=== PATIENT | male | born 1995 | race Two or more races ===

== ENCOUNTER 2019-01-24 11:18 | Emergency (ER) | payer OTHER ==
[~2019-01-24] VITALS: Ht 170.2 cm; Wt 59.0 kg
[2019-01-24 11:50] VITALS: BP 150/98
--- NOTE | 2019-01-24 13:17 | PHYS DOC ---
Past Medical History Past Medical History: No Pertinent History Past Surgical History: No Surgical History Alcohol Use: Occasionally Drug Use: None Adult General Chief Complaint Chief Complaint: GROIN PAIN HPI HPI Patient is a 23 year old male presents with groin pain that's been ongoing since . The patient states the pain is intermittent and hurts most when he stands up. The patient states is 2 out of 10 in severity and sharp. Review of Systems Review of Systems Constitutional: Denies fever or chills [] Eyes: Denies change in visual acuity, redness, or eye pain [] HENT: Denies nasal congestion or sore throat [] Respiratory: Denies cough or shortness of breath [] Cardiovascular: No additional information not addressed in HPI [] GI: Denies abdominal pain, nausea, vomiting, bloody stools or diarrhea [] : Reports groin pain. Musculoskeletal: Denies back pain or joint pain [] Integument: Denies rash or skin lesions [] Neurologic: Denies headache, focal weakness or sensory changes [] Endocrine: Denies polyuria or polydipsia [] Complete systems were reviewed and found to be within normal limits, except as documented in this note. Allergies Allergies Allergies Coded Allergies Type Severity Reaction Last Updated Verified No Known Drug Allergies 01/24/19 No Physical Exam Physical Exam Constitutional: Well developed, well nourished, no acute distress, non-toxic appearance. [] HENT: Normocephalic, atraumatic, bilateral external ears normal, oropharynx moist, no oral exudates, nose normal. [] Eyes: PERRLA, EOMI, conjunctiva normal, no discharge. [] Neck: Normal range of motion, no tenderness, supple, no stridor. [] Cardiovascular:Heart rate regular rhythm, no murmur [] Lungs & Thorax: Bilateral breath sounds clear to auscultation [] Abdomen: Bowel sounds normal, soft, no tenderness, no masses, no pulsatile masses. [] Skin: Warm, dry, no erythema, no rash. [] Back: No tenderness, no CVA tenderness. [] Extremities: No tenderness, no cyanosis, no clubbing, ROM intact, no edema. [] Neurologic: Alert and oriented X 3, normal motor function, normal sensory function, no focal deficits noted. [] Psychologic: Affect normal, judgement normal, mood normal. [] Pelvic: Groin tenderness on palpation. Current Patient Data Vital Signs Vital Signs Date Time Temp Pulse Resp B/P (MAP) Pulse Ox O2 Delivery O2 Flow Rate FiO2 01/24/19 11:50 98.4 62 16 150/98 (115) 100 Room Air 98.4 EKG EKG [] Radiology/Procedures Radiology/Procedures [][facility] [address] [place] [address] IMAGING REPORT Signed PATIENT: JOLEEN LUND AACCOUNT: [id number] : 1995 LOCATION: ER AGE: 23 SEX: M EXAM STATUS: REG ER ORD. PHYSICIAN: LENI POCNE APRN REASON: groin pain PROCEDURE: TESTICULAR/SCROTUM TESTICULAR/SCROTUM History: Inguinal pain. Comparison: None. Technique: Multiple grayscale, color flow Doppler and Doppler spectral analysis images of the scrotum are obtained. Findings: Right testicle measures 4.5 x 3.0 x 2.0 cm. Right testicle demonstrates normal parenchymal echogenicity. The right epididymis is unremarkable. Left testicle measures 3.7 x 1.8 x 1.6 cm. Left testicle demonstrates normal parenchymal echogenicity. The left epididymis is unremarkable. There is no hydrocele or varicocele. Scrotal hyperemia or swelling are not seen. Doppler imaging demonstrates normal flow to both testicles, without evidence of torsion. No evidence of right inguinal hernia. IMPRESSION: 1. Unremarkable testicular ultrasound. No evidence of inguinal hernia. Electronically signed by: Saqib Banks DO (01/24/2019 1:43 PM) [id number] DICTATED and SIGNED BY: SAQIB BANKS DO DATE: 01/24/19 1343 Course & Med Decision Making Course & Med Decision Making Pertinent Labs and Imaging studies reviewed. (See chart for details) Will rule out testicular torsion with ultrasound. Ultrasound is negative. Will d/c home. Dragon Disclaimer Dragon Disclaimer This electronic medical record was generated, in whole or in part, using a voice recognition dictation system. Departure Departure Impression: Primary Impression: Groin pain Disposition: HOME, SELF-CARE Condition: STABLE Referrals: NO PCP (PCP) Additional Instructions: Thank you for visiting [facility]. We appreciate you trusting us with your care. If any additional problems come up don't hesitate to return to visit us. Please follow up with your primary care provider so they can plan additional care if needed and know about the problem that you had. If symptoms worsen come back to the Emergency Department. Any concerning symptoms that start such as chest pain, shortness of air, weakness or numbness on one side of the body, running high fevers or any other concerning symptoms return to the ER. Problem Qualifiers Primary Impression: Groin pain Laterality: unspecified laterality Qualified Codes: R10.30 - Lower abdominal pain, unspecified LENI PONCE APRN Jan 24, 2019 13:17
--- NOTE | 2019-01-24 13:46 | RAD ---
TESTICULAR/SCROTUM History: Inguinal pain. Comparison: None. Technique: Multiple grayscale, color flow Doppler and Doppler spectral analysis images of the scrotum are obtained. Findings: Right testicle measures 4.5 x 3.0 x 2.0 cm. Right testicle demonstrates normal parenchymal echogenicity. The right epididymis is unremarkable. Left testicle measures 3.7 x 1.8 x 1.6 cm. Left testicle demonstrates normal parenchymal echogenicity. The left epididymis is unremarkable. There is no hydrocele or varicocele. Scrotal hyperemia or swelling are not seen. Doppler imaging demonstrates normal flow to both testicles, without evidence of torsion. No evidence of right inguinal hernia. IMPRESSION: 1. Unremarkable testicular ultrasound. No evidence of inguinal hernia. Electronically signed by: Von Fung DO (01/24/2019 1:43 PM) [id number]
== END 2019-01-24 14:30 | disposition home or self-care (01) ==
LOC: ER 11:18
DX: R10.30 Lower abdominal pain, unspecified (principal)
CPT/HCPCS: 76870; 99284